=== PATIENT | female | born 1955 | race African-American/Black ===

== ENCOUNTER → 2025-02-19 | Day surgery (SDC) | payer MEDICARE ==
[~2025-02-19] MED LIST: ATORVASTATIN CA20 MG PO; B-121000 MC2; CALCIUM CITRAT200 MG; CYCLOBENZAPRINE10 MG PO; D3-5000125 MCG PO; DEXAMETHASONE SOD PHOS INJ 4 MG/ML SDV ONE; EPHEDRINE SULFATE INJ 50 MG/ML VIAL ONE; FAMOTIDINE 20 MG/2 ML VIAL IV ONE; FENTANYL CITRATE/PF 100MCG/2 ML INJ ONE; FISH OIL 1,0001 EAC7; GLUCOTROL XL2.5 MG PO; LIDOCAINE HCL 2% LOCAL INJ 5 ML SDV VIAL INJ ONE; LISINOPRIL-HCT1 EAC1 PO; MULTI-VITAMIN1 EACH PO; NEURONTIN400 MG PO; OMEPRAZOLE40 MG PO; ONDANSETRON HCL INJ 2MG/ML 2ML 2 MG/ML VIAL ONE; PRECOSE25 MG PO; PROBIOTIC & AC1 EACH PO; PROPOFOL IV EMULSION 10 MG/ML 20 ML VIAL ONE; SEVOFLURANE INHAL SOLN 250 ML PEN BTL ONE; STOOL SOFTENER50 MG
[2025-02-19] MEDS: LACTATED RINGER'S 1,000 ML ONE (06:18)
[2025-02-19 08:12] VITALS: TEMP 97
[2025-02-19] MEDS: FENTANYL CITRATE/PF 100MCG/2 ML INJ ONE (08:13)
[2025-02-19] MEDS: ACETAMINOPHEN/CODEINE 300MG - 30MG TAB ONE (08:45)
[2025-02-19 09:08] VITALS: BP 139/66; PULSE 81; RESP 16; O2SAT 96
== END | disposition home or self-care (01) ==
LOC: OR 05:19
PROVIDERS: ATTEND Specialist
DX: G56.03 Carpal tunnel syndrome, bilateral upper limbs (principal); D64.9 Anemia, unspecified; E11.9 Type 2 diabetes mellitus without complications; I10 Essential (primary) hypertension; E78.5 Hyperlipidemia, unspecified; E66.01 Morbid (severe) obesity due to excess calories; K21.9 Gastro-esophageal reflux disease without esophagitis; G89.29 Other chronic pain; Z88.6 Allergy status to analgesic agent; Z91.041 Radiographic dye allergy status; Z91.040 Latex allergy status; Z88.2 Allergy status to sulfonamides; Z91.048 Other nonmedicinal substance allergy status; Z91.09 Other allergy status, other than to drugs and biological substances; Z79.84 Long term (current) use of oral hypoglycemic drugs; Z79.899 Other long term (current) drug therapy; Z68.36 Body mass index [BMI] 36.0-36.9, adult
CPT/HCPCS: 29848; 36415; 82948; J0690; J1100; J2003; J2405; J2704; J3010; J7121